=== PATIENT | female | born 2000 | race Caucasian/White ===

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

== ENCOUNTER 2022-02-04 13:55 | Emergency (ER) | payer MEDICAID ==
[~2022-02-04] VITALS: Ht 149.9 cm; Wt 41.0 kg
[2022-02-04 14:44] LABS: BASOPHILS % (AUTO) 0.6 % (0-1); EOSINOPHILS # (AUTO) 0.1 X10'3 (0-0.9); EOSINOPHILS % (AUTO) 1.1 % (0-6); HEMATOCRIT 41.8 % (35.0-45.0); HEMOGLOBIN 13.9 g/dl (12.0-16.0); LYMPHOCYTES # (AUTO) 2.1 X10'3 (1.1-4.8); LYMPHOCYTES % (AUTO) 34.1 % (21-51); MEAN CORPUSCULAR HEMOGLOBIN 29.6 PG (27.0-31.0); MEAN CORPUSCULAR HGB CONC 33.2 g/dL (33.0-36.5); MEAN CORPUSCULAR VOLUME 89.4 FL (78-98); MEAN PLATELET VOLUME 8.9 FL (7.4-10.4); MONOCYTES # (AUTO) 0.4 X10'3 (0-0.9); NEUTROPHILS # (AUTO) 3.5 X10'3 (1.8-7.7); NEUTROPHILS % (AUTO) 57.2 % (42-75); PLATELET COUNT 233 X10'3 (140-440); RED BLOOD COUNT 4.67 X10'6 (4.20-5.60); RED CELL DISTRIBUTION WIDTH 13.8 % (11.5-14.5); WHITE BLOOD COUNT 6.2 X10'3 (4.5-11.0)
[2022-02-04 14:51] LABS: URINE HCG NEGATIVE (NEG)
[2022-02-04 15:03] LABS: ALANINE AMINOTRANSFERASE 107 U/L (12-78); ALBUMIN 4.3 G/DL (3.4-5.0); ALBUMIN/GLOBULIN RATIO 1.3 (1.1-1.5); ALKALINE PHOSPHATASE 52 IU/L (20-180); ANION GAP 11 (8-16); ASPARTATE AMINO TRANSFERASE 32 U/L (10-37); BILIRUBIN,TOTAL 0.4 MG/DL (0.1-1.0); BLOOD UREA NITROGEN 10 MG/DL (7-18); BUN/CREATININE RATIO 14.9 (6.6-38.0); CALCIUM 9.1 MG/DL (8.5-10.1); CHLORIDE 107 MMOL/L (99-107); CREATININE 0.67 MG/DL (0.40-0.90); GLUCOSE 81 MG/DL (70-104); POTASSIUM 3.7 MMOL/L (3.5-5.1); SODIUM 145 MMOL/L (135-145); TOTAL CARBON DIOXIDE 27.4 MMOL/L (24-32); TOTAL PROTEIN 7.7 G/DL (6.4-8.2); eGFR > 90 ML/MIN
--- NOTE | 2022-02-04 16:25 | NUR ---
PT FLORIN ORTHO BP WELL, NO DIZZINESS, ABLE TO STAND WITHOUT ASSIST,
[2022-02-04 16:26] VITALS: BP 107/74
== END 2022-02-04 16:30 | disposition home or self-care (01) ==
LOC: ER 13:57
DX: F41.9 Anxiety disorder, unspecified (principal); R61 Generalized hyperhidrosis; R11.2 Nausea with vomiting, unspecified; F32.A Depression, unspecified; F60.3 Borderline personality disorder; F12.90 Cannabis use, unspecified, uncomplicated; Z91.013 Allergy to seafood; Z79.899 Other long term (current) drug therapy; Z91.51 Personal history of suicidal behavior
CPT/HCPCS: 36415; 80053; 81025; 85025; 93005; 99284

== ENCOUNTER 2022-05-22 12:07 | Emergency (ER) | payer MEDICAID ==
[~2022-05-22] VITALS: Ht 149.9 cm; Wt 43.2 kg
[2022-05-22 12:16] VITALS: BP 116/72
[2022-05-22 13:23] LABS: ALANINE AMINOTRANSFERASE 19 U/L (12-78); ALBUMIN 4.3 G/DL (3.4-5.0); ALBUMIN/GLOBULIN RATIO 1.3 (1.1-1.5); ALKALINE PHOSPHATASE 43 IU/L (20-180); ANION GAP 10 (8-16); ASPARTATE AMINO TRANSFERASE 15 U/L (10-37); BILIRUBIN,TOTAL 0.5 MG/DL (0.1-1.0); BLOOD UREA NITROGEN 7 MG/DL (7-18); BUN/CREATININE RATIO 12.3 (6.6-38.0); CALCIUM 8.9 MG/DL (8.5-10.1); CHLORIDE 106 MMOL/L (99-107); CREATININE 0.57 MG/DL (0.40-0.90); GLUCOSE 87 MG/DL (70-104); POTASSIUM 3.7 MMOL/L (3.5-5.1); SODIUM 141 MMOL/L (135-145); TOTAL CARBON DIOXIDE 25.2 MMOL/L (24-32); TOTAL PROTEIN 7.5 G/DL (6.4-8.2); eGFR > 90 ML/MIN
== END 2022-05-22 14:10 | disposition home or self-care (01) ==
LOC: ER 12:09
DX: E11.65 Type 2 diabetes mellitus with hyperglycemia (principal); F12.90 Cannabis use, unspecified, uncomplicated; Z91.013 Allergy to seafood
CPT/HCPCS: 36415; 80053; 82948; 99283

== ENCOUNTER 2022-09-26 10:34 | Emergency (ER) | payer MEDICAID ==
[~2022-09-26] VITALS: Ht 152.4 cm; Wt 47.5 kg
--- NOTE | 2022-09-26 10:50 | NUR ---
REPORT GIVEN TO DR HENSLEY, NO NEW ORDERS AT THIS TIME. JW BERTRAND AND HYDROELECTRIC POWERPLANT SUPERVISOR AT BEDSIDE.
[2022-09-26 11:04] LABS: BASOPHILS % (AUTO) 0.3 % (0-1); EOSINOPHILS # (AUTO) 0.2 X10'3 (0-0.9); EOSINOPHILS % (AUTO) 2.2 % (0-6); HEMATOCRIT 40.7 % (35.0-45.0); HEMOGLOBIN 13.5 g/dl (12.0-16.0); LYMPHOCYTES # (AUTO) 2.8 X10'3 (1.1-4.8); LYMPHOCYTES % (AUTO) 36.2 % (21-51); MEAN CORPUSCULAR HEMOGLOBIN 29.7 PG (27.0-31.0); MEAN CORPUSCULAR HGB CONC 33.2 g/dL (33.0-36.5); MEAN CORPUSCULAR VOLUME 89.6 FL (78-98); MEAN PLATELET VOLUME 9.1 FL (7.4-10.4); MONOCYTES # (AUTO) 0.6 X10'3 (0-0.9); MONOCYTES % (AUTO) 7.6 % (2-12); NEUTROPHILS # (AUTO) 4.2 X10'3 (1.8-7.7); NEUTROPHILS % (AUTO) 53.7 % (42-75); PLATELET COUNT 213 X10'3 (140-440); RED BLOOD COUNT 4.54 X10'6 (4.20-5.60); RED CELL DISTRIBUTION WIDTH 13.6 % (11.5-14.5); WHITE BLOOD COUNT 7.8 X10'3 (4.5-11.0)
[2022-09-26 11:20] LABS: ALANINE AMINOTRANSFERASE 18 U/L (12-78); ALBUMIN/GLOBULIN RATIO 1.2 (1.1-1.5); ALKALINE PHOSPHATASE 55 IU/L (20-180); ANION GAP 10 (8-16); ASPARTATE AMINO TRANSFERASE 20 U/L (10-37); BILIRUBIN,TOTAL 0.4 MG/DL (0.1-1.0); BLOOD UREA NITROGEN 10 MG/DL (7-18); BUN/CREATININE RATIO 14.1 (6.6-38.0); CALCIUM 9.4 MG/DL (8.5-10.1); CHLORIDE 104 MMOL/L (99-107); CREATININE 0.71 MG/DL (0.40-0.90); GLUCOSE 93 MG/DL (70-104); POTASSIUM 3.5 MMOL/L (3.5-5.1); SODIUM 139 MMOL/L (135-145); TOTAL CARBON DIOXIDE 24.7 MMOL/L (24-32); TOTAL PROTEIN 7.3 G/DL (6.4-8.2); eGFR > 90 ML/MIN
[2022-09-26] MEDS ORDERED: ringers solution, lacted 1,000 ML IV ONE (11:20)
[2022-09-26] MEDS ORDERED: acetaminophen 325mg tablet PO ONE (11:20)
[2022-09-26 11:26] LABS: MAGNESIUM 2.1 MG/DL (1.5-2.4)
[2022-09-26 12:16] LABS: URINE HCG NEGATIVE (NEG)
[2022-09-26 12:19] LABS: CLARITY,URINE SLIGHTLY CLOUDY (Clear); COLOR,URINE YELLOW (Yellow); GLUCOSE, URINE NEGATIVE (Neg); KETONES,URINE NEGATIVE (Neg); LEUKOCYTE ESTERASE ,URINE NEGATIVE (Neg); NITRITES, URINE NEGATIVE (Neg); OCCULT BLOOD,URINE NEGATIVE (Neg); PROTEIN,URINE NEGATIVE (Neg); UROBILINOGEN,URINE 0.2 E.U/dL (0.2-1.0)
[2022-09-26 12:21] LABS: UA COLLECTION TYPE VOIDED
[2022-09-26 12:49] LABS: SQUAMOUS EPITHELIAL CELL,UR FEW /LPF (FEW)
[2022-09-26 12:52] LABS: BACTERIA,URINE FEW /HPF (Neg); RBC,URINE 0-2 /HPF (0-2); WBC,URINE 0-4 /HPF (0-4)
[2022-09-26 13:28] VITALS: BP 102/67
== END 2022-09-26 13:45 | disposition home or self-care (01) ==
LOC: ER 10:34
DX: R55 Syncope and collapse (principal); R42 Dizziness and giddiness; R51.9 Headache, unspecified; F41.9 Anxiety disorder, unspecified; F32.A Depression, unspecified; F12.90 Cannabis use, unspecified, uncomplicated; Z88.8 Allergy status to other drugs, medicaments and biological substances; Z79.899 Other long term (current) drug therapy
CPT/HCPCS: 36415; 71045; 80053; 81001; 81025; 82948; 83735; 83880; 84484; 85025; 93005; 96360; 99285; J7120

== ENCOUNTER 2023-03-12 13:06 | Emergency (ER) | payer MEDICAID ==
[~2023-03-12] VITALS: Ht 152.4 cm; Wt 40.5 kg
[2023-03-12 13:18] VITALS: BP 111/75
[2023-03-12] MEDS ORDERED: ketorolac tromethamine 15mg/ml inj. IM ONE (16:40)
== END 2023-03-12 18:14 | disposition home or self-care (01) ==
LOC: ER 13:06
DX: S13.4XXA Sprain of ligaments of cervical spine, initial encounter (principal); G44.319 Acute post-traumatic headache, not intractable; F41.9 Anxiety disorder, unspecified; Z88.8 Allergy status to other drugs, medicaments and biological substances; Z79.899 Other long term (current) drug therapy; X58.XXXA Exposure to other specified factors, initial encounter; Y93.89 Activity, other specified; Y92.89 Other specified places as the place of occurrence of the external cause; Y99.8 Other external cause status
CPT/HCPCS: 72125; 96372; 99285; J1885; L0172

== ENCOUNTER 2024-11-16 12:59 | Emergency (ER) | payer MEDICAID ==
[~2024-11-16] VITALS: Ht 162.6 cm; Wt 44.5 kg
[2024-11-16 13:35] LABS: BASOPHILS % (AUTO) 0.4 % (0-1); EOSINOPHILS % (AUTO) 0.6 % (0-6); HEMATOCRIT 43.6 % (35.0-45.0); HEMOGLOBIN 14.5 g/dl (12.0-16.0); LYMPHOCYTES # (AUTO) 2.6 X10'3 (1.1-4.8); LYMPHOCYTES % (AUTO) 32.7 % (21-51); MEAN CORPUSCULAR HEMOGLOBIN 30.3 PG (27.0-31.0); MEAN CORPUSCULAR HGB CONC 33.3 g/dL (33.0-36.5); MEAN CORPUSCULAR VOLUME 90.8 FL (78-98); MEAN PLATELET VOLUME 10.1 FL (7.4-10.4); MONOCYTES # (AUTO) 0.6 X10'3 (0-0.9); MONOCYTES % (AUTO) 7.1 % (2-12); NEUTROPHILS # (AUTO) 4.8 X10'3 (1.8-7.7); NEUTROPHILS % (AUTO) 59.2 % (42-75); PLATELET COUNT 257 X10'3 (140-440); RED BLOOD COUNT 4.81 X10'6 (4.20-5.60); RED CELL DISTRIBUTION WIDTH 13.9 % (11.5-14.5)
[2024-11-16 13:58] VITALS: PULSE 74
[2024-11-16 14:04] LABS: ALANINE AMINOTRANSFERASE 21 U/L (12-78); ALBUMIN 4.6 G/DL (3.4-5.0); ALBUMIN/GLOBULIN RATIO 1.1 (1.1-1.5); ALKALINE PHOSPHATASE 62 IU/L (46-116); ANION GAP 14 (8-16); ASPARTATE AMINO TRANSFERASE 19 U/L (10-37); BILIRUBIN,TOTAL 0.7 MG/DL (0.1-1.0); BLOOD UREA NITROGEN 10 MG/DL (7-18); BUN/CREATININE RATIO 15.4 (10.0-20.0); CALCIUM 9.9 MG/DL (8.5-10.1); CHLORIDE 103 MMOL/L (99-107); CREATININE 0.65 MG/DL (0.40-0.90); GLUCOSE 92 MG/DL (70-104); POTASSIUM 3.3 MMOL/L (3.5-5.1); SODIUM 140 MMOL/L (135-145); TOTAL CARBON DIOXIDE 23.2 MMOL/L (24-32); TOTAL PROTEIN 8.8 G/DL (6.4-8.2); eCRCL 95 ML/MIN; eGFR > 90 ML/MIN
[2024-11-16 14:08] LABS: PRO BRAIN NATRIURETIC PEPTIDE 41 PG/ML (0-125)
[2024-11-16] MEDS ORDERED: ALBU8HFA INH (14:47)
[2024-11-16] MEDS ORDERED: SALM50DI2 INH (14:47)
[2024-11-16 14:52] VITALS: BP 105/65; RESP 18; TEMP 97.6; O2SAT 98
== END 2024-11-16 15:01 | disposition home or self-care (01) ==
LOC: ER 13:00
DX: R07.89 Other chest pain (principal); J45.990 Exercise induced bronchospasm; F41.9 Anxiety disorder, unspecified; F32.A Depression, unspecified; F12.90 Cannabis use, unspecified, uncomplicated; Z88.8 Allergy status to other drugs, medicaments and biological substances
CPT/HCPCS: 36415; 71045; 80053; 82948; 83880; 84484; 85025; 93005; 99285

== ENCOUNTER 2024-12-09 11:12 | Emergency (ER) | payer MEDICAID ==
[~2024-12-09] VITALS: Ht 152.4 cm; Wt 43.6 kg
[~2024-12-09 11:12] MED LIST changes: +ALBU8HFA INH; +SALM50DI2 INH
[2024-12-09 11:26] VITALS: TEMP 99.1
[2024-12-09 12:22] LABS: ALANINE AMINOTRANSFERASE 20 U/L (12-78); ALBUMIN 4.4 G/DL (3.4-5.0); ALBUMIN/GLOBULIN RATIO 1.3 (1.1-1.5); ALKALINE PHOSPHATASE 52 IU/L (46-116); ANION GAP 10 (8-16); ASPARTATE AMINO TRANSFERASE 12 U/L (10-37); BILIRUBIN,TOTAL 0.3 MG/DL (0.1-1.0); BLOOD UREA NITROGEN 8 MG/DL (7-18); CALCIUM 9.4 MG/DL (8.5-10.1); CHLORIDE 108 MMOL/L (99-107); CREATININE 0.42 MG/DL (0.40-0.90); GLUCOSE 89 MG/DL (70-104); POTASSIUM 3.9 MMOL/L (3.5-5.1); SODIUM 144 MMOL/L (135-145); TOTAL CARBON DIOXIDE 26.4 MMOL/L (24-32); TOTAL PROTEIN 7.7 G/DL (6.4-8.2); eCRCL 145 ML/MIN; eGFR > 90 ML/MIN
[2024-12-09 12:29] LABS: PRO BRAIN NATRIURETIC PEPTIDE 67 PG/ML (0-125)
[2024-12-09] MEDS ORDERED: ibuprofen tablet 400 MG TABLET PO ONE (12:55)
[2024-12-09 13:01] LABS: BASOPHILS % (AUTO) 0.7 % (0-1); EOSINOPHILS # (AUTO) 0.1 X10'3 (0-0.9); EOSINOPHILS % (AUTO) 2.3 % (0-6); HEMATOCRIT 42.9 % (35.0-45.0); HEMOGLOBIN 14.1 g/dl (12.0-16.0); LYMPHOCYTES # (AUTO) 2.3 X10'3 (1.1-4.8); MEAN CORPUSCULAR HEMOGLOBIN 29.9 PG (27.0-31.0); MEAN CORPUSCULAR HGB CONC 32.8 g/dL (33.0-36.5); MEAN PLATELET VOLUME 10.4 FL (7.4-10.4); MONOCYTES # (AUTO) 0.4 X10'3 (0-0.9); MONOCYTES % (AUTO) 7.5 % (2-12); NEUTROPHILS # (AUTO) 2.9 X10'3 (1.8-7.7); NEUTROPHILS % (AUTO) 49.5 % (42-75); PLATELET COUNT 217 X10'3 (140-440); RED BLOOD COUNT 4.71 X10'6 (4.20-5.60); RED CELL DISTRIBUTION WIDTH 13.8 % (11.5-14.5); WHITE BLOOD COUNT 5.8 X10'3 (4.5-11.0)
[2024-12-09] MEDS: ibuprofen 200mg tablet PO ONE ×2 (13:24→13:34)
[2024-12-09] MEDS: acetaminophen 325mg tablet PO ONE (13:24)
[2024-12-09] MEDS ORDERED: IBUP-1985 PO (14:50)
[2024-12-09] MEDS ORDERED: CYCL-394 PO (14:50)
[2024-12-09 15:04] VITALS: BP 109/89; PULSE 68; RESP 15; O2SAT 99
== END 2024-12-09 15:13 | disposition home or self-care (01) ==
LOC: ER 11:12
DX: R07.89 Other chest pain (principal); F12.90 Cannabis use, unspecified, uncomplicated; Z91.013 Allergy to seafood; Z79.899 Other long term (current) drug therapy; Z95.0 Presence of cardiac pacemaker
CPT/HCPCS: 36415; 71045; 80053; 83880; 84484; 85025; 93005; 99285

== ENCOUNTER 2025-05-25 08:03 | Emergency (ER) | payer MEDICAID ==
[~2025-05-25] VITALS: Ht 152.4 cm; Wt 46.4 kg
[~2025-05-25 08:03] MED LIST changes: +IBUP-1985 PO
[2025-05-25 08:13] VITALS: TEMP 99.2
--- NOTE | 2025-05-25 11:27 | Physician Documentation ---
History of Present Illness General Chief Complaint: Hypoglycemia Stated Complaint: HYPERGLYCEMIA Time Seen by MD: 11:24 Primary Medical Doctor: YASMEEN Acevedo History of Present Illness Initial Comments The patient is a 25-year-old female with a history of reactive hypoglycemia who is followed at [facility] and has a Dexcom unit. For the past several days she has been having episodes of hypoglycemia. She reports that she was on disability until Friday when she went back to work and this represents the only change that she can think of that may have contributed to her recent instability. Medication Reconciliation Allergies: Coded Allergies: shrimp (Verified Allergy, Severe, THROAT SWELL, 05/25/25) Scheduled Ibuprofen (Ibuprofen), 1 TAB PO Q8H Levonorgestrel-Ethin Estradiol (Marlissa-28 Tablet), 1 TAB PO DAILY, (Reported) Salmeterol Xinafoate* (Serevent Diskus*), 1 PUFFS INH Q12H Scheduled PRN albuterol inhaler (Pro-Air Inhaler), 2 PUFFS INH Q4HPRN PRN for wheezing Past Medical History Past Medical History: No Pertinent History, Anxiety, Depression Past Surgical History: no surgical history Last Menstrual Period: May 08, 2025 Alcohol Use: None Drug Use: marijuana Lives In: Home Occupation: student Review of Systems ROS Constitutional: Denies chills, fatigue, fever, weight gain or weight loss. HEENT: Denies hearing loss, sinus pressure or visual changes. Respiratory: Denies cough, shortness of breath or wheezing. Cardiovascular: Denies chest pain, pain while walking (claudication), edema or palpitations. Gastrointestinal: Denies abdominal pain, blood in stool, constipation, diarrhea, heartburn, loss of appetite, nausea or vomiting. Genitourinary: Denies painful urination (dysuria), excessive amount of urine (polyuria) or urinary frequency. Metabolic/Endocrine: Denies cold intolerance, heat intolerance, excessive thirst (polydipsia) or excessive hunger (polyphagia). Neurological: Denies dizziness, extremity numbness, extremity weakness, headaches, seizures or tremors. Psychiatric: Denies anxiety or depression. Integumentary: Denies breast discharge, breast lump, hives, mole change(s), rash or skin lesion. Musculoskeletal: Denies back pain, joint pain, joint swelling or neck pain. Hematologic: Denies easily bleeding, easily bruises, lymphedema or issues with blood clots. Immunologic: Denies food allergies or seasonal allergies. Physical Exam Physical Exam Vital Signs: Temperature: 99.2, Source: Oral, Heart Rate: 63, Respiratory Rate: 16, BP: 109/82, Pulse Oximetry: 100, Weight: 46.400 Oxygen Flow Rate: 0 Physical Exam Physical Exam Vitals and nursing note reviewed. Constitutional: General: Patient is awake, alert, oriented x 4 in no acute distress and well appearing. Speech is clear and lucid. Appearance: Normal appearance. Patient is not ill-appearing, toxic-appearing or diaphoretic. HENT: Head: Normocephalic and atraumatic. Mouth/Throat: Mouth: Mucous membranes are moist. Pharynx: Oropharynx is clear. Eyes: General: No scleral icterus. Extraocular Movements: Extraocular movements intact. Pupils: Pupils are equal, round, and reactive to light. Neck: Supple, no Kernig or Brudzinski sign. Cardiovascular: Rate and Rhythm: Normal rate and regular rhythm. Heart sounds: No murmur heard. Pulmonary: Effort: No respiratory distress. Breath sounds: No wheezing, rhonchi or rales. Abdominal: General: There is no distension. Palpations: There is no fluid wave, hepatomegaly or mass. Tenderness: There is no abdominal tenderness. There is no guarding. Musculoskeletal: General: No swelling or deformity. Skin: Coloration: Skin is not jaundiced. Findings: No erythema or rash. Neurological: Mental Status: Patient is alert. Progress Results/Orders Results/Orders Orders - MILE STEPHENSON MD Accucheck (05/25/25 ) Completed Orders - MILE STEPHENSON MD Cbc/Diff (05/25/25 11:24) CMP (05/25/25 11:24) Hcg Serum Qt (05/25/25 11:24) MG (05/25/25 11:24) Lipase (05/25/25 11:24) Ua W/Microscopic, Cult If Ind (05/25/25 11:47) Vital Signs 05/25/25 05/25/25 05/25/25 05/25/25 08:13 08:31 09:41 10:43 Temp 99.2 Pulse 89 78 74 63 Resp 16 16 16 16 B/P (MAP) 119/70 116/75 (89) 109/68 (82) 109/82 (91) Pulse Ox 100 100 100 100 O2 Flow Rate 0 0 0 0 05/25/25 11:50 Pulse 68 Resp 16 B/P (MAP) 110/78 (89) Pulse Ox 95 Laboratory Tests Test 05/25/25 08:18 05/25/25 11:26 05/25/25 11:34 05/25/25 11:41 Glucometer 104 118 H SARS-CoV-2 Antigen (Rapid) Negative White Blood Count 6.7 Red Blood Count 4.18 L Hemoglobin 12.6 Hematocrit 37.8 Mean Corpuscular Volume 90.5 Mean Corpuscular Hemoglobin 30.1 Mean Corpuscular Hemoglobin Concent 33.3 Red Cell Distribution Width 13.7 Platelet Count 252 Mean Platelet Volume 9.4 Neutrophils (%) (Auto) 58.9 Lymphocytes (%) (Auto) 31.7 Monocytes (%) (Auto) 6.2 Eosinophils (%) (Auto) 2.4 Basophils (%) (Auto) 0.8 Neutrophils # (Auto) 4.0 Lymphocytes # (Auto) 2.1 Monocytes # (Auto) 0.4 Eosinophils # (Auto) 0.2 Basophils # (Auto) 0.1 CBC Comment Sodium Level 140 Potassium Level 4.2 Chloride Level 108 H Carbon Dioxide Level 26.3 Anion Gap 6 L Blood Urea Nitrogen 8 Creatinine 0.52 Estimated GFR/1.73 m2 > 90 BUN/Creatinine Ratio 15.4 Glucose Level 89 Calcium Level 8.7 Magnesium Level 2.2 Total Bilirubin 0.3 Aspartate Amino Transf (AST/SGOT) 13 Alanine Aminotransferase (ALT/SGPT) < 6 L Alkaline Phosphatase 35 L Total Protein 6.7 Albumin 3.4 Globulin 3.3 Albumin/Globulin Ratio 1.0 L Lipase 33 HCG Beta Subunit < 1.0 Chemistry Comments Test 05/25/25 11:47 Urine Specimen Description Non-specified Urine Color Yellow Urine Clarity Clear Urine pH 7.0 Urine Specific [place] 1.020 Urine Protein Negative Urine Glucose (UA) Negative Urine Ketones Negative Urine Occult Blood Trace-intact Urine Nitrite Negative Urine Bilirubin Negative Urine Urobilinogen 0.2 Urine Leukocyte Esterase Negative Urine RBC 0-2 Urine WBC 0-4 Urine Squamous Epithelial Cells Moderate Urine Bacteria 1+ Urine Culture Indicated Not ind Volume Urine Centrifuged 10 ml Urine Comment Medical Decision Making Findings This 25-year-old female with a history of reactive hypoglycemia has had some low readings on her Dexcom monitor. Her glucose levels here been satisfactory. Remainder of laboratory studies are reassuring. I am going to have her follow- up with her PCP and specialists providers at [facility]. I feel she is stable for discharge. Departure Disposition: HOME / SELF CARE / HOMELESS Impression: Primary Impression: History of reactive hypoglycemia Condition: Stable Additional Instructions: It is important to see your doctor or primary care provider. Emergency care may be incomplete without proper follow-up. Symptoms sometimes change or new symptoms might arise after you leave the emergency department. It is important that you call your doctor if you become worse in any way, or return to the emergency department. You are strongly urged to follow-up with your physician to assure complete and thorough care. Please call your doctor's office today, and informed them that you were seen in the emergency department, and that you need to be seen immediately for close follow-up. If you do not have a primary care doctor we encourage you to proactively seek a local physician for close follow-up. Consider local clinics, [facility], or local [facility]. Prior to discharge we spoke at length concerning symptoms that would merit reevaluation, but please return to the emergency department for any symptoms that are concerning to you, and we will be happy to continue your evaluation and treatment. Please note you can always return to the emergency department if you are having difficulty coordinating close follow-up. If medications were prescribed, you should fill them at your local pharmacy immediately and take only as prescribed. Bring your new medications to your doctors follow-up visit to discuss any changes that would be necessary. Please check [facility] for any results you did not receive in the Emergency Department: often we are unable to get all your tests back before you leave, and these tests need to be reviewed by your PCP and yourself. You can also call Medical Records if you are unable to access the internet to see [place]. Return to the emergency department immediately for worsening chest pain, difficulty breathing, sweating, or other concerning emergent symptoms. Referrals: NO PRIMARY CARE PROVIDER (PCP) Education Educated regarding: diagnosis, treatment, need for follow up Signature Scribe Signature: . Attestation: MILE WHITFIELD MD May 25, 2025 11:27
[2025-05-25 11:55] LABS: MEAN PLATELET VOLUME 9.4 FL (7.4-10.4); RED CELL DISTRIBUTION WIDTH 13.7 % (11.5-14.5)
[2025-05-25 11:58] LABS: LEUKOCYTE ESTERASE ,URINE NEGATIVE (Neg); NITRITES, URINE NEGATIVE (Neg); OCCULT BLOOD,URINE TRACE-INTACT (Neg)
[2025-05-25 12:02] LABS: UA COLLECTION TYPE NON-SPECIFIED
[2025-05-25 12:15] LABS: SQUAMOUS EPITHELIAL CELL,UR MODERATE /LPF (FEW)
[2025-05-25 12:22] LABS: CREATININE 0.52 MG/DL (0.40-0.90); TOTAL CARBON DIOXIDE 26.3 MMOL/L (24-32); eCRCL 121 ML/MIN; eGFR > 90 ML/MIN
[2025-05-25 13:16] VITALS: BP 114/59; PULSE 86; RESP 16; O2SAT 94
== END 2025-05-25 13:19 | disposition home or self-care (01) ==
LOC: ER 08:04
DX: E16.2 Hypoglycemia, unspecified (principal); Z20.822 Contact with and (suspected) exposure to COVID-19; Z79.899 Other long term (current) drug therapy
CPT/HCPCS: 36415; 80053; 81001; 82948; 83690; 83735; 84702; 85025; 87811; 99285

== ENCOUNTER 2025-10-12 08:16 | Emergency (ER) | payer MEDICAID, SELFPAY ==
[~2025-10-12] VITALS: Ht 152.4 cm; Wt 47.4 kg
[~2025-10-12 08:16] MED LIST changes: -IBUP-1985 PO; +IBUP600T52 PO
[2025-10-12 08:21] VITALS: TEMP 99.3
--- NOTE | 2025-10-12 09:24 | Physician Documentation ---
History of Present Illness ~ Chief Complaint: Hypoglycemia Stated Complaint: LOW BLOOD SUGAR Time Seen by MD: 08:48 Primary Medical Doctor: YASMEEN Acevedo Mode of Arrival: POV HPI 25-year-old female presents to the ED with a complaint of intermittent hypoglycemia. She states she was diagnosed with reactive hypoglycemia when she was younger. States that she had a chemical recently and believes that is attributing to her symptoms. He has been given orange juice in the ED in that has brought her levels up to 87 after an initial reading of 60. No longer symptomatic and shaky. States she is feels better. He also says that she has an appointment with her primary care provider on the 20 of October. Medication Reconciliation Allergies: Coded Allergies: shrimp (Verified Allergy, Severe, THROAT SWELL, 05/25/25) oseltamivir (Verified Allergy, Unknown, RASH, 10/12/25) Scheduled Ibuprofen (Ibuprofen), 1 TAB PO Q8H Levonorgestrel-Ethin Estradiol (Marlissa-28 Tablet), 1 TAB PO DAILY, (Reported) Salmeterol Xinafoate* (Serevent Diskus*), 1 PUFFS INH Q12H Scheduled PRN albuterol inhaler (Pro-Air Inhaler), 2 PUFFS INH Q4HPRN PRN for wheezing Past Medical History Past Medical History: No Pertinent History, Anxiety, Depression Past Surgical History: no surgical history Alcohol Use: None Drug Use: marijuana Lives In: Home Occupation: student Review of Systems All Other Systems at this time: Reviewed and Negative ROS As stated above in the HPI, otherwise all systems are reviewed and negative. Physical Exam Vital Signs: Temperature: 99.3, Source: Temporal, Heart Rate: 96, Respiratory Rate: 17, BP: 119/77, Pulse Oximetry: 99, Weight: 47.400 Oxygen Flow Rate: 0 Physical Exam General: Alert, no apparent distress. HEENT: PERRL, EOMI, no injection, moist mucous membranes. Neck: Full range of motion. Respiratory: Lungs clear, no respiratory distress. Chest: No accessory muscle use. Cardiovascular: Regular rate and rhythm, no murmurs. Gastrointestinal: Soft, nontender, nondistended. Bowels sounds present. Extremities: Normal range of motion, no deformity. Neurologic: Oriented x4. Psychiatric: Normal mood and affect. Skin: Normal color, warm and dry. No edema, no ecchymosis. Progress Results/Orders Results/Orders Vital Signs 10/12/25 10/12/25 10/12/25 08:21 08:32 08:35 Temp 99.3 Pulse 100 96 Resp 14 17 17 B/P (MAP) 111/73 119/77 (91) Pulse Ox 98 99 O2 Flow Rate 0 0 Laboratory Tests Test 10/12/25 08:39 Glucometer 87 Medical Decision Making Additional information obtaine: old records Findings Patient does not present as acutely ill. Her blood sugars have regulated to safe levels. Advise her to perform the same intervention if she has low blood sugar again. She really needs is further evaluation of her pancreas in the outpatient setting Differential Dx:Considerations: Include: CVA, Encephalopathy, Hepatic disease, Hypoglycemia, Seizure, Sepsis, Alcohol induced, Drug overdose induced, Decr. ivette. intake induced, Insulin induced, oral hypoglycemic induced, Other Departure Disposition: 01 HOME / SELF CARE / HOMELESS Impression: Primary Impression: Hypoglycemia Condition: Improved Discharge Instructions: Hypoglycemia, [id number] Additional Instructions: As discussed, it is important that she follow up with the your primary care to obtain a referral to go see a sewing machine operator floorperson for further evaluation of your pancreas if there is concern of hypersecretion due to previous miscarriage Referrals: NO PRIMARY CARE PROVIDER (PCP) Education Educated: Patient Educated regarding: diagnosis Signature Scribe Signature: h Attestation: Scribed for Merlin Lima Flying Teacher by Merlin Brady NP . 10/12/25 09:24 MERLIN LIMA BARN HAND Oct 12, 2025 09:23
[2025-10-12 09:33] VITALS: BP 119/73; PULSE 86; RESP 16; O2SAT 100
== END 2025-10-12 09:35 | disposition home or self-care (01) ==
LOC: ER 08:17
DX: E16.2 Hypoglycemia, unspecified (principal); F41.9 Anxiety disorder, unspecified; F32.A Depression, unspecified; F12.90 Cannabis use, unspecified, uncomplicated; Z91.013 Allergy to seafood; Z88.1 Allergy status to other antibiotic agents; Z79.899 Other long term (current) drug therapy
CPT/HCPCS: 82948; 99282

== ENCOUNTER 2025-10-18 10:54 | Inpatient (IN) | payer MEDICAID ==
[~2025-10-18] VITALS: Ht 152.4 cm; Wt 70.0 kg
--- NOTE | 2025-10-18 11:24 | Physician Documentation ---
History of Present Illness ~ Chief Complaint: Hypoglycemia Stated Complaint: HYPOGLYCEMIA Time Seen by MD: 11:24 Primary Medical Doctor: YASMEEN Acevedo Mode of Arrival: EMS HPI A 25 year old female patient past medical history of POTS, PCOS and reactive hypoglycemia, presented to the ED with chief complaints of hypoglycemia was recorded by a dexcom which was apparently 53 mg/dL and post which bumped up to 119 mg/dL. Patient has been to our ED multiple times with the same symptoms, she stated that she does not feel any hypoglycemic symptoms as before she feels weakness and little bit of shakiness. Patient has an ground hand at [facility] who she is due to visit in the next week. Patient also has a history of POTS for which she has a pacemaker in place and takes propranolol 60 mg and flecainide 50 mg she follows up with a nascar racer at [facility] Patient she told me that she takes control pills as well Medication Reconciliation Allergies: Coded Allergies: shrimp (Verified Allergy, Severe, THROAT SWELL, 10/18/25) oseltamivir (Verified Allergy, Unknown, RASH, 10/18/25) Scheduled Ethinyl Estradiol/Drospirenone (Loryna 3 mg-0.02 mg Tablet), 1 TAB PO DAILY, (Reported) Flecainide Acetate (Flecainide Acetate), 1 TAB PO BID, (Reported) Fludrocortisone Acetate (Fludrocortisone Acetate), 1 TAB PO DAILY, (Reported) Mirtazapine (Mirtazapine), 1 TAB PO HS, (Reported) Propranolol HCl (Propranolol HCl), 1 CAP PO DAILY, (Reported) Scheduled PRN Albuterol Sulfate (Ventolin Hfa), for Per Protocol, (Reported) Discontinued Medications Ibuprofen (Ibuprofen), 1 TAB PO Q8H Discontinued Reason: patient no longer taking Levonorgestrel-Ethin Estradiol (Marlissa-28 Tablet), 1 TAB PO DAILY, (Reported) Discontinued Reason: patient no longer taking Metformin Hcl* (Metformin ER*), 1 TAB PO BID, (Reported) Salmeterol Xinafoate* (Serevent Diskus*), 1 PUFFS INH Q12H Discontinued Reason: patient no longer taking albuterol inhaler (Pro-Air Inhaler), 2 PUFFS INH Q4HPRN PRN for wheezing Discontinued Reason: patient no longer taking Past Medical History Past Medical History: No Pertinent History (Prediabetes and reactive hypoglycemia,POTS, pcos), Anxiety, Depression Past Surgical History: no surgical history Alcohol Use: None Drug Use: marijuana Lives In: Home Occupation: student Review of Systems All Other Systems at this time: Reviewed and Negative ROS As stated above in the HPI, otherwise all systems are reviewed and negative. Physical Exam Vital Signs: Temperature: 98.5, Source: Oral, Heart Rate: 84, Respiratory Rate: 18, BP: 123/74, Pulse Oximetry: 98, Weight: 70.000 Oxygen Flow Rate: 0 Physical Exam General: Awake, oriented to person, place and time HEENT: Conjunctive are pink, sclerae clear, no icterus, pupil is equal in both sides, reactive to light, no ear discharge, no pharyngeal erythema or an edema. Neck: Supple, no JVD, no lymphadenopathy and thyromegaly. Chest: Equal air entry on both lungs, no additional sounds no rhonchi no wheezing at the moment. Cardiovascular: S1-S2 regular sinus rhythm and, regular rate, no gallops, no rubs, no murmurs Abdomen: No visible peristalsis, Bowel sounds present on auscultation, soft, no tenderness, no guarding, no rigidity Extremities: No obvious deformities, no pitting edema bilaterally, capillary refill intact, peripheral pulsations are intact on both sides Neurologic: Mental status: alert and conscious, oriented to place, person and time, preserved memory, normal speech. Cranial nerves I-XII: Normal. Motor system: Preserved power, coordination, no evidenced involuntary movements, strength 5/5 in four extremities. Sensory system: Preserved temperature, pain and vibration sensation. 2+ deep tendon reflexes in biceps, triceps, quadriceps. Negative Babinski. Cerebellar: No nystagmus, dysdiadochokinesia, normal [id number] testing. Musculoskeletal: No joint swelling, deformities, inflammations, and no scoliosis and back tenderness Skin: Warm and dry. Dry oral mucosa. Progress Progress Note 14:44 Spoke with hospitalist. Results/Orders Reviewed/noted all lab results: Yes Results/Orders Orders - GABBIE NELSON MD Observation Status Start (10/18/25 14:27) Page Hospitalist (10/18/25 14:30) Fill Out Med Reconciliation (10/18/25 14:30) Cta Neck/Head (10/18/25 16:46) Completed Orders - GABBIE NELSON MD Iohexol 300mg/Ml 100ml Inj. (Omnipaque-3 (10/18/25 12:17) Dextrose 10%-Water Iv Solution (Dextrose (10/18/25 14:30) Drug Screen, Urine (10/18/25 14:46) Cta Neck/Head (10/18/25 16:46) Iohexol 350mg/Ml 100ml (Omnipaque 350mg/ (10/18/25 16:20) Vital Signs 10/18/25 10/18/25 10/18/25 10/18/25 10:57 11:03 13:02 14:21 Temp 98.5 Pulse 84 80 82 Resp 18 18 18 16 B/P (MAP) 123/74 98/61 (73) 102/66 (78) Pulse Ox 98 96 100 O2 Flow Rate 0 0 10/18/25 16:47 Pulse 82 B/P (MAP) 113/65 (81) Pulse Ox 100 Laboratory Tests Test 10/18/25 11:21 10/18/25 12:06 10/18/25 13:47 Glucometer 119 H 92 Urine Opiates Screen Negative Urine Methadone Screen Negative Urine Fentanyl Screen Negative Urine Barbiturates Screen Negative Urine Phencyclidine Screen Negative Urine Amphetamines Screen Negative Urine Benzodiazepines Screen Negative Urine Cocaine Screen Negative Urine Cannabinoids Screen Positive Drug Screen Comment White Blood Count 5.9 Red Blood Count 4.51 Hemoglobin 13.2 Hematocrit 39.7 Mean Corpuscular Volume 88.1 Mean Corpuscular Hemoglobin 29.2 Mean Corpuscular Hemoglobin Concent 33.2 Red Cell Distribution Width 13.6 Platelet Count 219 Mean Platelet Volume 9.5 Neutrophils (%) (Auto) 51.0 Lymphocytes (%) (Auto) 37.5 Monocytes (%) (Auto) 8.0 Eosinophils (%) (Auto) 2.8 Basophils (%) (Auto) 0.7 Neutrophils # (Auto) 3.0 Lymphocytes # (Auto) 2.2 Monocytes # (Auto) 0.5 Eosinophils # (Auto) 0.2 Basophils # (Auto) 0.0 CBC Comment Sodium Level 138 Potassium Level 4.0 Chloride Level 105 Carbon Dioxide Level 24.8 Anion Gap 8 Blood Urea Nitrogen 11 Creatinine 0.64 Estimated GFR/1.73 m2 > 90 BUN/Creatinine Ratio 17.2 Glucose Level 103 Calcium Level 9.2 Total Bilirubin 0.3 Aspartate Amino Transf (AST/SGOT) 16 Alanine Aminotransferase (ALT/SGPT) 14 Alkaline Phosphatase 45 L Total Protein 7.4 Albumin 3.6 Globulin 3.8 Albumin/Globulin Ratio 0.9 L Human Chorionic Gonadotropin, Qual Negative Chemistry Comments Re-Evaluation Re-Evaluation : Re-Evaluation: Improved Progress Patient is still seems to be confused with very slow speech. Deliberate speech has a think about which he is going to say. Patient had a glucose level of 53 in the clinic received juice went up to 88 brought over to the hospital where she had an episode in between her to Accu-Cheks were was 50 based on her glucometer. Patient is on a D10 drip and still does not seem to have completely recovered. There was no signs of infection. EKG/XRAY/CT/US/VASC/MRI CT : Interpreted By: radiologist CT: abdomen/pelvis With Contrast?: Yes Impression CAT SCAN Patient: ERASMO RAMIREZ Medical Record: [id number] ELIZABETH FLORENCE : 2000, Age: 25 Sex: Female Location: ER Patient Status: [facility] ER Service Date/Time: 10/18/251317 Ordering Physician: RAMON WHITMAN Exam: CT ABDOMEN PELVIS EXAM: CT CT ABDOMEN PELVIS W/ IV CONTRAST INDICATION: Hypoglycemia TECHNIQUE: Volumetric multidetector CT images of the abdomen and pelvis were obtained without contrast. All CT scans at this facility use dose modulation, iterative reconstruction, and/or weight based dosing when appropriate to reduce radiation dose to as low as reasonably achievable. COMPARISON: None FINDINGS: [LOWER CHEST]: The partially visualized lung bases are clear without a pleural effusion. The cardiac size is normal without pericardial effusion. [LIVER]: Normal hepatic size without suspicious focal lesion. [GALLBLADDER AND BILIARY TREE]: No cholelithiasis. [SPLEEN]: Unremarkable. [PANCREAS]: Unremarkable. [ADRENAL GLANDS]: Unremarkable [KIDNEYS]: No hydronephrosis. No nephroureterolithiasis. No suspicious focal lesion. [BLADDER]: Unremarkable for the degree distention. [REPRODUCTIVE ORGANS]: Unremarkable. [BOWEL/MESENTERY]: Stomach is normal. No CT evidence of bowel obstruction. Mild stool burden correlate for constipation. [ASCITES]: Absent [LYMPHADENOPATHY]: No pathologically enlarged lymph nodes by CT size criteria [VASCULATURE]: No aneurysmal dilatation. [ABDOMINAL WALL]: Unremarkable. [MUSCULOSKELETAL]: No acute fracture or aggressive focal osseous lesion. IMPRESSION: 1. No CT evidence of an acute abdominal/pelvic process. 2. Mild stool burden correlate for constipation. Electronically Signed by:OLAF LAURA MD Date & Time: 10/18/251330 Dictated by: OLAF LAURA MD Dictation date and time: 10/18/25 133 Primary Care Provider: NO PRIMARY CARE PROVIDER cc: RAMON WHITMAN, ARMEN ~ Medical Decision Making Additional information obtaine: old records Findings Abdominal pelvis CT IMPRESSION: 1. No CT evidence of an acute abdominal/pelvic process. 2. Mild stool burden correlate for constipation. Differential Dx:Considerations: Include: Hypoglycemia Departure Disposition: 01 HOME / SELF CARE / HOMELESS Impression: Primary Impression: Nutrition, metabolism, and development symptoms Condition: Stable Referrals: NO PRIMARY CARE PROVIDER (PCP) Education Educated: Patient Educated regarding: treatment Signature Scribe Signature: Scribed for Gabbie Nelson MD by Francisco Mccarty . 10/18/25 14:52 Attestation: The note accurately reflects work and decisions made by me.Gabbie Nelson MD 10/18/25 11:24 GABBIE NELSON MD Oct 18, 2025 11:24 RAMON WHITMAN RES Oct 18, 2025 12:04 FRANCISCO NELSON Oct 18, 2025 14:46
[2025-10-18] MEDS ORDERED: iohexol 300mg/ml 100ml inj. ONE (12:17)
[2025-10-18 12:25] LABS: MEAN PLATELET VOLUME 9.5 FL (7.4-10.4); RED CELL DISTRIBUTION WIDTH 13.6 % (11.5-14.5)
[2025-10-18 12:44] LABS: HCG SERUM QL NEGATIVE
[2025-10-18 12:45] LABS: CREATININE 0.64 MG/DL (0.40-0.90); TOTAL CARBON DIOXIDE 24.8 MMOL/L (24-32); eCRCL 98 ML/MIN; eGFR > 90 ML/MIN
--- NOTE | 2025-10-18 13:33 | RADIOLOGY REPORT ---
EXAM: CT CT ABDOMEN PELVIS W/ IV CONTRAST INDICATION: Hypoglycemia TECHNIQUE: Volumetric multidetector CT images of the abdomen and pelvis were obtained without contrast. All CT scans at this facility use dose modulation, iterative reconstruction, and/or weight based dosing when appropriate to reduce radiation dose to as low as reasonably achievable. COMPARISON: None FINDINGS: [LOWER CHEST]: The partially visualized lung bases are clear without a pleural effusion. The cardiac size is normal without pericardial effusion. [LIVER]: Normal hepatic size without suspicious focal lesion. [GALLBLADDER AND BILIARY TREE]: No cholelithiasis. [SPLEEN]: Unremarkable. [PANCREAS]: Unremarkable. [ADRENAL GLANDS]: Unremarkable [KIDNEYS]: No hydronephrosis. No nephroureterolithiasis. No suspicious focal lesion. [BLADDER]: Unremarkable for the degree distention. [REPRODUCTIVE ORGANS]: Unremarkable. [BOWEL/MESENTERY]: Stomach is normal. No CT evidence of bowel obstruction. Mild stool burden correlate for constipation. [ASCITES]: Absent [LYMPHADENOPATHY]: No pathologically enlarged lymph nodes by CT size criteria [VASCULATURE]: No aneurysmal dilatation. [ABDOMINAL WALL]: Unremarkable. [MUSCULOSKELETAL]: No acute fracture or aggressive focal osseous lesion. IMPRESSION: 1. No CT evidence of an acute abdominal/pelvic process. 2. Mild stool burden correlate for constipation.
[2025-10-18 15:28] LABS: URINE AMPHETAMINE SCREEN NEGATIVE (Neg); URINE BARBITUATE SCREEN NEGATIVE (Neg); URINE BENZODIAZEPINES SCREEN NEGATIVE (Neg); URINE CANNABINOID SCREEN POSITIVE (Neg); URINE COCAINE SCREEN NEGATIVE (Neg); URINE METHADONE SCREEN NEGATIVE (Neg); URINE OPIATE SCREEN NEGATIVE (Neg); URINE PHENCYCLIDINE SCREEN NEGATIVE (Neg)
--- NOTE | 2025-10-18 17:09 | RADIOLOGY REPORT ---
CLINICAL HISTORY: confusion TECHNIQUE: CT angiogram of the head and neck was performed without and with intravenous contrast. 3D MIP reconstructed images were created and archived on the PACS system. This exam was performed according to our departmental dose optimization program. Up-to-date CT equipment and radiation dose reduction techniques are utilized as appropriate. CTDI 10.3 DLP 419.5 COMPARISON: CT CERVICAL SPINE on DOS: 03/12/23 FINDINGS: CTA NECK: The common carotid, internal carotid, and vertebral arteries are patent with no evidence for high grade narrowing, occlusion, and dissection. There is no significant narrowing at the carotid bulbs per NASCET criteria. CTA HEAD: The anterior and posterior intracranial circulations are intact with no evidence for high grade narrowing, occlusion, or aneurysm. IMPRESSION: NO ACUTE CTA ABNORMALITY OF THE MAJOR HEAD AND NECK ARTERIAL VASCULATURE.
[2025-10-18] MEDS ORDERED: FLEC50TA PO (17:20)
[2025-10-18] MEDS ORDERED: MIRT-88 PO (17:20)
[2025-10-18] MEDS ORDERED: METF-900 PO (17:20)
[2025-10-18] MEDS ORDERED: FLUD0.1T PO (17:20)
[2025-10-18] MEDS ORDERED: ALBU18HF2 (17:20)
[2025-10-18] MEDS ORDERED: ETHI1TAB18 PO (17:20)
[2025-10-18] MEDS ORDERED: INDLA60C PO (17:20)
[2025-10-18] MEDS ORDERED: magnesium sulf-water 2g/50mL 50 ML IV PRN (17:25)
[2025-10-18] MEDS: normal saline 1000ml 1,000 ML IV SCH (17:25)
[2025-10-18] MEDS ORDERED: mag hydrox/Alum hydrox/simeth 30ml oral suspension PO PRN (17:25)
[2025-10-18] MEDS ORDERED: magnesium sulf-water 4G/100mL 100 ML IV PRN (17:25)
[2025-10-18] MEDS ORDERED: potassium Cl 20 mEq SR tablet PO PRN ×2 (17:25)
[2025-10-18] MEDS ORDERED: dextrose 50%-water 50ml dispensing syringe IV PRN ×2 (17:25)
[2025-10-18] MEDS ORDERED: DEXTROSE 15 GM of carb/4 tabs (each vial/BOTTLE has 4 tablets) PO PRN ×2 (17:25)
[2025-10-18] MEDS ORDERED: potassium Cl 40MEQ/1/2NS 520ml 520 ML IV PRN (17:25)
[2025-10-18] MEDS ORDERED: glucagon, human recombinant 1mg kit SUBCUT PRN (17:25)
[2025-10-18] MEDS ORDERED: ondansetron/PF 4mg/2ml inj IV PRN (17:25)
[2025-10-18] MEDS ORDERED: magnesium hydroxide 30ml (MOM) UD suspension PO PRN (17:25)
[2025-10-18] MEDS: PERFLUTREN PROTEIN-A MICROSPHR (Optison) 0.22 MG/ML 3ML VIAL IV ONE (17:41)
--- NOTE | 2025-10-18 17:44 | HISTORY AND PHYSICAL ---
History & Physical Providers to CC ~ History of Present Illness Reason for Admit\Complaint: Metabolic encephalopathy\presyncope\hypoglycemia History of Present Illness This is a 25-year-old female who has a history of POTS (takes propranolol, flecainide, and Florinef) and has a leadless pacemaker and has been diagnosed with prediabetes she is not 100% sure but believes her last hemoglobin A1c was 5.4. The patient has home today and felt weak and shaky in and confused has a Dexcom continuous glucose monitor and discovered her sugar was 53 she drank some orange juice in her sugar came up to 119. The patient has been seen in the ED on the morning of the and has a time her blood sugar was 60. A head CT scan and a CTA of the head were negative. 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 Allergies: Coded Allergies: shrimp (Verified Allergy, Severe, THROAT SWELL, 10/18/25) oseltamivir (Verified Allergy, Unknown, RASH, 10/18/25) Home Medications Home Medications Active Reported Ventolin Hfa (Albuterol Sulfate) 90 Mcg Hfa.aer.ad PRN Loryna 3 mg-0.02 mg Tablet (Ethinyl Estradiol/Drospirenone) 0.02 Mg-3 Mg (28) Tablet 1 Tab PO DAILY Fludrocortisone Acetate 0.1 Mg Tablet 1 Tab PO DAILY Mirtazapine 30 Mg Tablet 1 Tab PO HS Flecainide Acetate 50 Mg Tablet 1 Tab PO BID Propranolol HCl 60 Mg Cap.sa.24h 1 Cap PO DAILY Metformin ER* (Metformin HCl) 500 Mg Tab.sr.24h 1 Tab PO BID Past Medical History Past Medical History POTS, interstitial cystitis, PCOS, borderline personality disorder Past Surgical History Surgical History Comment Exploratory laparotomy, cystoscopy, leadless pacemaker Family History Family History: Endometriosis MOTHER Pacemaker MOTHER Maternal grandmother Past Social History Social History Comment Does not smoke cigarettes. Occasional alcohol intake (2 times a month), smokes marijuana a night to sleep- does not use illicit drugs. Full code status ROS ROS Except for positives in the HPI the rest of the 14 point review systems is negative Exam Vitals: Vital Signs Date Time Temp Pulse Resp B/P (MAP) Pulse Ox O2 Delivery O2 Flow Rate FiO2 10/18/25 16:47 82 113/65 (81) 100 12/30/25 14:21 16 10/18/25 13:02 0 10/18/25 10:57 98.5 General: Gen. No acute distress alert and oriented 4 Lungs clear to ascultation bilaterally, no wheezes rales or rhonchi appreciated Heart normal sinus rhythm no murmurs rubs or clicks noted Abdomen soft nontender bowel sounds are normoactive Lower extremities no clubbing cyanosis, nor edema appreciated bilaterally Diagnostic Data Last Recorded Lab Results: 10/18/25 1206 10/18/25 1206 Advance Care Planning Advanced Care plannin - 30 Minutes Problems: (1) Hypoglycemia Status: Acute Additional Plan # metabolic encephalopathy # hypoglycemia # near-syncope # prediabetes 1 hour glucose fingerstick monitoring Hold metformin Low-dose sliding scale Telemetry monitoring # POTS The patient has a leave this pacemaker An echocardiogram is ordered Continue Florinef Continue flecainide Continue propranolol # DVT prophylaxis SCDs I spent a total of 16 minutes on reviewing various resuscitative measures/ ACP with the patient at the time of admission. The patient has decided on Full code status Date of Service: Oct 18, 2025 Billing Provider: XIANG TORRES DO Common Visit Codes: 43631-TQDUKCG INP/OBS CARE (HIGH) Secondary Visit Codes: 85889-[id number] CARE PLAN 30 MINUTES XIANG TORRES DO Oct 18, 2025 17:44
[2025-10-18] MEDS: docusate sod 100mg capsule PO SCH (20:00)
[2025-10-18] MEDS: K and/or MAG REPLACEMENT MC SCH (20:02)
[2025-10-18] MEDS: INSULIN LISPRO 100 UNIT/ML INSULN.PEN MULTI-DOSE SQ SCH (21:00)
[2025-10-18 22:00] VITALS: BP 107/66; PULSE 70; RESP 16; TEMP 99; O2SAT 99
[2025-10-19 06:00] VITALS: BP 104/57; PULSE 78; RESP 16; TEMP 97.3; O2SAT 97
[2025-10-19 06:42] LABS: MEAN PLATELET VOLUME 10.2 FL (7.4-10.4); RED CELL DISTRIBUTION WIDTH 13.3 % (11.5-14.5)
[2025-10-19] MEDS: Ethinyl Estradiol/Drospirenone (Loryna 3 mg-0.02 mg Tablet) PO SCH (07:05)
[2025-10-19 07:23] LABS: CREATININE 0.67 MG/DL (0.40-0.90); TOTAL CARBON DIOXIDE 22.9 MMOL/L (24-32); eCRCL 94 ML/MIN; eGFR > 90 ML/MIN
[2025-10-19 08:00] VITALS: RESP 16; O2SAT 97
[2025-10-19 10:00] VITALS: BP 105/56; PULSE 63; RESP 16; TEMP 98.7; O2SAT 100
--- NOTE | 2025-10-19 10:20 | DISCHARGE SUMMARY ---
Discharge Summary Providers to CC ~ Discharge Summary Admission Diagnosis: Hypoglycemia/metabolic encephalopathy/pots Hospital Course DATE OF ADMISSION: DATE OF DISCHARGE: Discharge Diagnosis\Comment: Hypoglycemia POTS syndrome Operations\Procedures: None Consultants: None Complications: None Condition on DC: Stable Continued Medications: Albuterol Sulfate (Ventolin Hfa) 90 Mcg Hfa.aer.ad PRN for Per Protocol Ethinyl Estradiol/Drospirenone (Loryna 3 mg-0.02 mg Tablet) 0.02 Mg-3 Mg (28) Tablet 1 TAB PO DAILY Flecainide Acetate (Flecainide Acetate) 50 Mg Tablet 1 TAB PO BID Fludrocortisone Acetate (Fludrocortisone Acetate) 0.1 Mg Tablet 1 TAB PO DAILY Mirtazapine (Mirtazapine) 30 Mg Tablet 1 TAB PO HS Propranolol HCl (Propranolol HCl) 60 Mg Cap.sa.24h 1 CAP PO DAILY Discontinued Medications: Metformin Hcl* (Metformin ER*) 500 Mg Tab.sr.24h 1 TAB PO BID Discharge Summary: History of Present Illness This is a 25-year-old female who has a history of POTS (takes propranolol, flecainide, and Florinef) and has a leadless pacemaker and has been diagnosed with prediabetes she is not 100% sure but believes her last hemoglobin A1c was 5.4. The patient has home today and felt weak and shaky in and confused has a Dexcom continuous glucose monitor and discovered her sugar was 53 she drank some orange juice in her sugar came up to 119. The patient has been seen in the ED on the morning of the and has a time her blood sugar was 60. A head CT scan and a CTA of the head were negative. 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 Physical exam patient is alert and oriented x4 in no acute distress HEENT normocephalic nontraumatic head PERRLA. EOMI. CVS first and second heart sounds are regular rate rhythm no murmurs gallops or rubs Respiratory system is clear to auscultate bilaterally no rales rhonchi crackles or wheezing Abdomen is soft bowel sounds are positive nontender nondistended Extremities no clubbing cyanosis or edema Hospital course patient is a 25-year-old that has a questionable diagnosis of prediabetes was on metformin had an episode of hypoglycemia metformin was discontinued patient was admitted with IV fluids with D10 patient's blood sugars are all the 100 she is doing well in his being discharged home with advice to abstain from using metformin and follow up with PCP in one week follow a carb consistent diet. Patient's mentation has improved she is back to her baseline being alert and oriented x4 in no acute distress. Patient seems to have impr felipe sooner than expected *Problems/Diagnosis: (1) Hypoglycemia Status: Acute Total Time Spent on D/C: > 30 Minutes Date of Service: Oct 19, 2025 Billing Provider: KINSEY POND MD Common Visit Codes: 07263-MSC/OBS DISCH DAY >30min KINSEY POND MD Oct 19, 2025 10:20
--- NOTE | 2025-10-19 21:01 | CARDIOLOGY REPORT ---
APPROVED REPORT EXAM: Comprehensive 2D, Doppler, and color-flow Echocardiogram. Patient Location: ER 10 Blood Pressure: 113/65 mmHg Heart Rate: 68 bpm Rhythm: SINUS Indications SYNCOPE POTS LEADLESS PACEMAKER 05/2024 [place]aver: Rashad Moss MD ([facility]) / Jami Ruiz MD ([facility]) Previous echo: none available 2D Dimensions RVDd 2.8 cm IVSd 0.8 (0.7-1.1cm) LVDd 3.8 cm PWd 0.8 (0.7-1.1cm) IVSs 0.9 (0.8-1.2cm) LVDs 2.7 (2.5-4.0cm) PWs 1.3 (0.8-1.2cm) LVOT Diameter 1.91 (1.8-2.4cm) LVEF(%) 57.1 (>50%) FS (%) 29.4 % SV 36.4 ml CO 2.3 L/min M-Mode Dimensions Left Atrium(MM) 1.92 (2.5-4.0cm) Aortic Root 2.31 (2.2-3.7cm) Aortic Cusp Exc 1.76 (1.5-2.0cm) MV EPSS 0.3 (<0.5cm) Aortic Valve AoV Peak Nicolas. 113.4 cm/s AoV VTI 21.6 cm AO Peak GR. 5.1 mmHg AO Mean GR. 3 mmHg LVOT VTI 20.53 cm LVOT Peak Nicolas. 99.0 cm/s REMI(VTI)/BSA 2.71 cm2/m2 REMI (VTI) 2.71 cm2 AV DI 0.95 % Mitral Valve MV E Velocity 75.6 cm/s MV Peak Gr. 4 mmHg MV DECEL TIME 228 ms MV A Velocity 34.5 cm/s MV PHT 56 ms E/A Ratio 2.2 MVA (PHT) 3.93 cm2 MV VMax 94.3 cm/s TDI Medial E' P. V 21.07 cm/s E/Medial E' 3.6 Tricuspid Valve TR P. Velocity 188 cm/s RAP ESTIMATE 5 mmHg TR Peak Gr. 14 mmHg RVSP 19 mmHg Pulmonary Vein S1 Velocity 79.9 cm/s D2 Velocity 66.4 cm/s PVa Velocity 39.8 cm/s PVa Duration 108 msec LEFT VENTRICLE Normal LV size and wall thickness. Overall systolic function is normal. LVEF is 55-60%. RIGHT VENTRICLE RV is normal size and function. ATRIA LA size is normal. RA size is normal. AORTIC VALVE Trileaflet AV appears normal without stenosis or insufficiency by color and spectral flow Doppler. MITRAL VALVE Mild MV annular calcification without stenosis. Trace regurgitation by color and spectral flow Doppler. TRICUSPID VALVE TV appears structurally normal with trace regurgitation by color and spectral flow Doppler. PULMONIC VALVE Normal PV without stenosis, physiologic insufficiency by color and spectral flow Doppler. GREAT VESSELS Aortic root is normal in size. Ascending aorta is normal in size. PERICARDIUM Normal pericardium. No effusion. Other Information Study Quality: Adequate Conclusion Normal LV size and wall thickness. Overall systolic function is normal. LVEF is 55-60%. RV is normal size and function. LA size is normal. Trileaflet AV appears normal without stenosis or insufficiency by color and spectral flow Doppler. Mild MV annular calcification without stenosis. Trace regurgitation by color and spectral flow Doppler. TV appears structurally normal with trace regurgitation by color and spectral flow Doppler. Normal pericardium. No effusion.
== END 2025-10-19 12:15 | disposition home or self-care (01) | DRG 48 ==
LOC: ER 10:54 → ED HOLD 17:30 → ORTHO 4S 22:05
PROVIDERS: ADMIT Family Medicine; ATTEND Family Medicine
PROC: BW211ZZ Computerized Tomography (CT Scan) of Abdomen and Pelvis using Low Osmolar Contrast (ICD-10-PCS; principal; 2025-10-18)
PROC: B3251ZZ Computerized Tomography (CT Scan) of Bilateral Common Carotid Arteries using Low Osmolar Contrast (ICD-10-PCS; 2025-10-18)
PROC: B32G1ZZ Computerized Tomography (CT Scan) of Bilateral Vertebral Arteries using Low Osmolar Contrast (ICD-10-PCS; 2025-10-18)
PROC: B32R1ZZ Computerized Tomography (CT Scan) of Intracranial Arteries using Low Osmolar Contrast (ICD-10-PCS; 2025-10-18)
PROC: B3281ZZ Computerized Tomography (CT Scan) of Bilateral Internal Carotid Arteries using Low Osmolar Contrast (ICD-10-PCS; 2025-10-18)
DX: G90.A Postural orthostatic tachycardia syndrome [POTS] (principal); G93.41 Metabolic encephalopathy; E16.2 Hypoglycemia, unspecified; F60.3 Borderline personality disorder; Z91.013 Allergy to seafood; Z79.899 Other long term (current) drug therapy
CPT/HCPCS: 36415; 70496; 70498; 74177; 80048; 80053; 80305; 82948; 83036; 83735; 84132; 84703; 85025; 87081; 93306; 99285; G0378; J1815; J3490; J7030; Q9967